=== PATIENT | male | born 1960 | race Caucasian/White ===

== ENCOUNTER 2017-11-23 12:30 | Outpatient (CLI) | END 2017-11-23 12:31 | disposition home or self-care (01) | LOC: FCC-LAB 12:30 | PROVIDERS: ATTEND Nurse Practitioner Family | DX: R60.0 Localized edema (principal); Z83.3 Family history of diabetes mellitus; Z82.49 Family history of ischemic heart disease and other diseases of the circulatory system | CPT/HCPCS: 36415; 80053; 80061; 83036; 85025 ==